=== PATIENT | female | born 1970 | race Caucasian/White ===

== ENCOUNTER → 2024-02-23 11:46 | Outpatient (REF) | payer BC, SELFPAY | LOC: RAD 11:46 | PROVIDERS: ATTENDING PHYSICIAN Nurse Practitioner Family; FAMILY PHYSICIAN Internal Medicine | DX: M79.641 Pain in right hand (principal); Z82.49 Family history of ischemic heart disease and other diseases of the circulatory system | CPT/HCPCS: 73130 ==